=== PATIENT | female | born 1980 ===

== ENCOUNTER → 2017-09-10 | Outpatient (CLI) | payer SELFPAY ==
[2017-09-12 12:53] LABS: HPV Genotype 16 Not Detected (NOTDET); HPV Genotype 18 Not Detected (NOTDET)
[2017-09-23 09:51] LABS: HPV High Risk Other Not Detected (NOTDET)
== END | disposition home or self-care (01) ==
LOC: LAB 15:25
PROVIDERS: Obstetrics & Gynecology
DX: Z36.89 Encounter for other specified antenatal screening (principal)
CPT/HCPCS: 87491; 87591; 87624; G0123